=== PATIENT | male | born 1950 | race Caucasian/White ===

== ENCOUNTER 2025-03-07 08:10 | Day surgery (SDC) | payer OTHER ==
[~2025-03-07] VITALS: Ht 182.9 cm; Wt 97.3 kg
[~2025-03-07 08:10] MED LIST: Balanced Salt Epinephrine Irrigation Solution 500 mL IR SCH; LISI20 PO; Moxifloxacin HCL 0.5 MG/0.1 ML 0.4MLSYR LEFTEYE SCH; NORVASC10 MG PO; Ondansetron 4 MG SoluTab MM PRN; PHENYLEPHRINE\\TROPICAMIDE\\TETRACAINE OPHTHALMIC DILATING SOLN LEFTEYE PRN; Povidone-Iodine 450 DROP/30 ML Solution LEFTEYE SCH; Povidone-Iodine 450 DROP/30 ML Solution ONE; TAMS.4ER PO; Tetracaine HCl/Pf 0.5% Opth Soln 4 ml ONE; Triamcinolone Inj Susp 40 MG / ML 1ML Vial INJ SCH; Triamcinolone Inj Susp 40 MG / ML 1ML Vial ONE
--- NOTE | 2025-03-07 09:28 | NUR ---
03/07/25 0928 ROSIE DE OLIVEIRA NOTIFIED AT BEDSIDE FACE TO FACE OF PT SELF REPORT OF SOB/CP ON EXERTION. MD CONSULTING PT AT THIS TIME REGARDING SYMPTOMS. OK TO PROCEED
--- NOTE | 2025-03-07 09:35 | NUR ---
03/07/25 0935 Armida Cason VITALS AT 0934 BP: 118/65 P: 55 O2: 96% WITH 9 LITERS OF BLOW BY OXYGEN
[2025-03-07 09:52] VITALS: BP 103/81
--- NOTE | 2025-03-07 10:07 | NUR ---
03/07/25 Bryanna Troncoso ATTEMPTED TO CALL X2, LEFT VOICEMAIL.
== END 2025-03-07 10:10 | disposition home or self-care (01) ==
LOC: ORSCSDS 08:10
PROVIDERS: Ophthalmology
PROC: 08RK3JZ Replacement of Left Lens with Synthetic Substitute, Percutaneous Approach (ICD-10-PCS; principal; 2025-03-07 10:00)
DX: H25.812 Combined forms of age-related cataract, left eye (principal); Z96.1 Presence of intraocular lens; H52.202 Unspecified astigmatism, left eye; Z79.899 Other long term (current) drug therapy
CPT/HCPCS: A9270; J3301; V2632

== ENCOUNTER 2025-04-24 07:07 | Day surgery (SDC) | payer OTHER ==
[2025-04-24] VITALS (10 sets, daily range): BP systolic 114–149; BP diastolic 49–114
[~2025-04-24] VITALS: Ht 180.3 cm; Wt 99.0 kg
[~2025-04-24 07:07] MED LIST changes: -Balanced Salt Epinephrine Irrigation Solution 500 mL IR SCH; +MECL25 PO; -Moxifloxacin HCL 0.5 MG/0.1 ML 0.4MLSYR LEFTEYE SCH; +Nitrostat0.3 MG SL; -Ondansetron 4 MG SoluTab MM PRN; -PHENYLEPHRINE\\TROPICAMIDE\\TETRACAINE OPHTHALMIC DILATING SOLN LEFTEYE PRN; -Povidone-Iodine 450 DROP/30 ML Solution LEFTEYE SCH; -Povidone-Iodine 450 DROP/30 ML Solution ONE; -Tetracaine HCl/Pf 0.5% Opth Soln 4 ml ONE; -Triamcinolone Inj Susp 40 MG / ML 1ML Vial INJ SCH; -Triamcinolone Inj Susp 40 MG / ML 1ML Vial ONE
[2025-04-24] MEDS ORDERED: Aspir 8181 MG PO (07:32)
[2025-04-24] MEDS ORDERED: MULVITA PO (07:33)
[2025-04-24] MEDS ORDERED: Nitroglycerin 2 MG/20 ML BTL ONE (07:52)
[2025-04-24] MEDS ORDERED: NS 250 ML IV ONE (07:52)
[2025-04-24] MEDS ORDERED: Heparin Sodium 1000 Units/ML 10ML MDV ONE (07:52)
[2025-04-24] MEDS ORDERED: NS 1,000 ML IV ONE ×2 (07:52→08:07)
[2025-04-24] MEDS ORDERED: NiCARdipine HCL 1,000 MCG/5 ML SYR ONE (07:52)
[2025-04-24] MEDS ORDERED: FentaNYL Citrate 50 MCG/ML 2 ML Injection ONE (08:07)
[2025-04-24] MEDS ORDERED: Midazolam HCl 1MG / ML 2ML Vial ONE (08:07)
--- NOTE | 2025-04-24 08:52 | NUR ---
PT RETURNED TO RECOVERY ROOM IN [facility]INER. PT DENIES CHEST PAIN. RIGHT RAD TR BAND SITE SOFT NON-TENDER WITH NO HEMATOMA, NO PULSATILE BLEEDING AND RIGHT WRIST BRACE IN PLACE. CALL LIGHT IN REACH.
--- NOTE | 2025-04-24 09:07 | NUR ---
NO CHANGES TO R RAD TR BAND SITE. PT'S IN ROOM.
--- NOTE | 2025-04-24 09:36 | NUR ---
NO CHANGES TO R RAD TR BAND SITE.
[2025-04-24] MEDS ORDERED: ATOR40TA PO (09:45)
--- NOTE | 2025-04-24 10:18 | NUR ---
7 CC OF AIR REMOVED OUT OF NOW DEFLATED R RADIAL TR BAND OVER 10 MIN. R RAD SITE STILL SOFT NON-TENDER WITH NO HEMATOMA,NO PULSATILE BLEEDING AND RIGHT WRIST BRACE STILL IN PLACE. DISCHARGE INSTRUCTIONS REVIEWED ALL QUESTIONS ANSWERED.
--- NOTE | 2025-04-24 10:31 | NUR ---
NO CHANGES TO R ADELA STIE.
--- NOTE | 2025-04-24 10:41 | NUR ---
NO CHANGES TO DEFLATED R RAD TR BAND SITE.
--- NOTE | 2025-04-24 11:22 | NUR ---
NO CHANGES TO DEFLATED R RAD TR BAND SITE. TR BAND REMOVED AND POLYMEM PLACED OVER R RAD SITE. R RAD BRACE REMOVED AND R RAD WRIST BOARD PLACED. 20 IV DISCONTINUED FROM RIGHT AC WITH INTACT CANNULA. SP02 PROBE WAS ON RIGHT MIDDLE FINGER UPON ARRIVAL BACK TO RECOVERY ROOM. PT ESCORTED OUT VIA WHEELCHAIR ESCORT.
== END 2025-04-24 11:20 | disposition home or self-care (01) ==
LOC: MHTC 07:07
DX: R07.89 Other chest pain (principal); I45.10 Unspecified right bundle-branch block
CPT/HCPCS: 76937; 93454; 93571; 99152; 99153; A9270; C1769; C1887; C1894; J1644; J2250; J3010; J7030; J7050; Q9967